=== PATIENT | female | born 1940 | race Caucasian/White ===

== ENCOUNTER 2018-03-06 07:25 | Day surgery (SDC) | payer OTHER, BC ==
[2018-03-06] MEDS ORDERED: FLUMAZENIL 0.5 MG/5 ML MDV IVP PRN (07:50)
[2018-03-06] MEDS ORDERED: NALOXONE HCL 0.4 MG/ML INJ IVP PRN (07:50)
[2018-03-06] MEDS ORDERED: MIDAZOLAM 2 MG/2 ML VIAL IVP PRN (07:50)
[2018-03-06] MEDS ORDERED: fentaNYL 100 MCG/2 ML INJ IVP PRN (07:50)
[2018-03-06] MEDS ORDERED: NS 1,000 ML IV SCH (08:00)
[2018-03-06] MEDS ORDERED: FLUMAZENIL 0.5 MG/5 ML MDV IVP ONE (09:21)
[2018-03-06] MEDS ORDERED: MIDAZOLAM 2 MG/2 ML VIAL ONE (09:21)
[2018-03-06] MEDS ORDERED: NALOXONE HCL 0.4 MG/ML INJ ONE (09:21)
[2018-03-06] MEDS ORDERED: fentaNYL 100 MCG/2 ML INJ ONE (09:22)
[2018-03-06] MEDS ORDERED: ONDANSETRON 4 MG/2 ML VIAL IVP PRN (10:12)
--- NOTE | 2018-03-06 10:13 | PDRADPRE ---
Radiology History & Physical Indication for procedure: back pain Home medications: Levothyroxine [Synthroid] 50 mcg PO DAILY 06/10/10 [Last Taken 03/05/18] Aspirin 81mg (*) 81 mg PO DAILY 03/06/18 [Last Taken 03/05/18] Cymbalta 60 MG (*) 60 mg PO DAILY 03/06/18 [Last Taken 03/05/18] Gabapentin [Neurontin 100 MG (*)] 100 mg PO 5XD 03/06/18 [Last Taken 03/05/18] Ibuprofen 400 mg PO DAILY 03/06/18 [Last Taken 03/05/18] LORAZEPAM 1 mg PO HS 03/06/18 [Last Taken 03/05/18] Ranitidine HCl 150 mg PO DAILY 03/06/18 [Last Taken 03/05/18] Zoloft 100mg (*) 100 mg PO DAILY 03/06/18 [Last Taken 03/05/18] traMADol 50 mg PO DAILY 03/06/18 [Last Taken 03/05/18] Allergies/Adverse Reactions: No Known Allergies Allergy (Unverified 10/29/09 12:56) Mental status: A&Ox3 Heart exam: regular rate and rhythm Lungs exam: clear to auscultation Mallampati Score: Class 1
--- NOTE | 2018-03-06 10:13 | PDPROPOC ---
Sedation Plan of Care Sedation Plan of Care: vital signs stable, mental status noted, patient educated of risks, benefits, alternatives, patient can tolerate sedation ASA Classification: ASA 2 Planned drugs: fentanyl, midazolam Mallampati Score: Class 1 Mallampati Reference Image: Patient passed 3-3-2 rule?: Yes
--- NOTE | 2018-03-06 10:14 | PDRADPN ---
Radiology Procedure Note Date of Procedure: 03/06/18 Radiologist: Saul Schroeder Anesthesia: IV Sedation Pre-op Diagnosis: LBP Post-op Diagnosis: LBP Indication: L4-5 right radiculopathy Procedure: JESICA Finding(s): L4-5 JESICA Inf/Abcess present in the surg proc area at time of surgery?: No
[2018-03-06] MEDS ORDERED: TRIAMCINOLONE ACETONIDE 200 MG/5 ML MDV IM ONE (10:24)
[2018-03-06] MEDS ORDERED: IOPAMIDOL (ISOVUE-M 300) 15 ML VIAL ONE (10:24)
[2018-03-06] MEDS ORDERED: LIDOCAINE 1% 300 MG/30 ML SDV ONE (10:24)
[2018-03-06 11:40] VITALS: BP 133/87
== END 2018-03-06 11:35 | disposition home or self-care (01) ==
LOC: FIMAGING 07:25
PROVIDERS: ATTEND Physician Assistant
PROC: 3E0S3BZ Introduction of Anesthetic Agent into Epidural Space, Percutaneous Approach (ICD-10-PCS; principal; 2018-03-06 10:25)
PROC: 3E0S33Z Introduction of Anti-inflammatory into Epidural Space, Percutaneous Approach (ICD-10-PCS; principal; 2018-03-06 10:25)
DX: M54.16 Radiculopathy, lumbar region (principal)
CPT/HCPCS: J2250; J2310; J3010; J3301; Q9967